=== PATIENT | female | born 1955 | race Caucasian/White ===

== ENCOUNTER 2018-12-14 18:04 | Emergency (ER) | payer OTHER ==
[~2018-12-14] VITALS: Ht 157.5 cm; Wt 59.0 kg
[2018-12-14] MEDS ORDERED: HYDROCODONE/APAP 10MG-325MG TAB PO ONE (18:45)
--- NOTE | 2018-12-14 19:17 | Diagnostic Imaging Report ---
FOREARM LEFT 2 VIEW - 2 views HISTORY: Pain. Proximal forearm pain. Fell yesterday. COMPARISON: None available. FINDINGS: Bones: Comminuted fracture of the distal radius with intra-articular involvement and impaction. Ulnar styloid avulsion fracture. Joints: The joint spaces are well-maintained, except at the radiocarpal joint. Soft tissues:. Diffuse soft tissue swelling. IMPRESSION: 1. Comminuted fracture of the distal radius with intra-articular involvement and impaction. 2. Ulnar styloid avulsion fracture. Signed by: Dr. Gregg Bucio M.D. on 12/14/2018 7:14 PM
[2018-12-14] MEDS ORDERED: TYLENOL WITH C1 EACH PO (19:24)
[2018-12-14] MEDS ORDERED: CLONIDINE HCL 0.1 MG TAB PO ONE (20:00)
[2018-12-14 21:19] VITALS: BP 170/80
== END 2018-12-14 21:25 | disposition home or self-care (01) ==
LOC: ER 18:04
DX: M25.532 Pain in left wrist (principal); S52.515A Nondisplaced fracture of left radial styloid process, initial encounter for closed fracture; S52.252A Displaced comminuted fracture of shaft of ulna, left arm, initial encounter for closed fracture; Y92.39 Other specified sports and athletic area as the place of occurrence of the external cause; W01.0XXA Fall on same level from slipping, tripping and stumbling without subsequent striking against object, initial encounter; I10 Essential (primary) hypertension; G62.9 Polyneuropathy, unspecified
CPT/HCPCS: 99284

== ENCOUNTER 2021-08-18 13:36 | Emergency (ER) | payer MEDICARE, OTHER ==
[~2021-08-18] VITALS: Ht 157.5 cm; Wt 60.1 kg
[~2021-08-18 13:36] MED LIST: TYLENOL WITH C1 EACH PO
[2021-08-18] MEDS ORDERED: LOPRESSOR HCT1 EAC1 (14:29)
[2021-08-18] MEDS ORDERED: LISINOPRIL10 MG PO (14:29)
== END 2021-08-18 16:51 | disposition home or self-care (01) ==
LOC: FSED 16:51
DX: S52.501A Unspecified fracture of the lower end of right radius, initial encounter for closed fracture (principal); W18.30XA Fall on same level, unspecified, initial encounter; Y93.01 Activity, walking, marching and hiking; Y92.89 Other specified places as the place of occurrence of the external cause; I10 Essential (primary) hypertension; G62.9 Polyneuropathy, unspecified
CPT/HCPCS: 99284